=== PATIENT | female | born 1990 ===

== ENCOUNTER 2021-01-23 10:01 | Emergency (ER) | payer MEDICAID, OTHER ==
[~2021-01-23] VITALS: Ht 152.4 cm; Wt 59.0 kg
[2021-01-23 10:59] VITALS: BP 142/84
[2021-01-23] MEDS ORDERED: KETOROLAC TROMETH 60MG/2ML VIAL IM ONE (11:45)
[2021-01-23] MEDS ORDERED: ONDANSETRON ODT 4 MG TAB PO ONE (11:45)
== END 2021-01-23 12:12 | disposition home or self-care (01) ==
LOC: ER 10:01
DX: G43.909 Migraine, unspecified, not intractable, without status migrainosus (principal)
CPT/HCPCS: 70450; 96372; 99284; J1885; Q0162